=== PATIENT | female | born 1955 | race Caucasian/White ===

== ENCOUNTER 2018-07-12 15:55 | Emergency (ER) | payer OTHER ==
[~2018-07-12] VITALS: Ht 165.1 cm; Wt 187.8 kg
[~2018-07-12 15:55] MED LIST: AUGMENTIN 875-1 EACH PO; CLARITIN10 MG PO; FIORICET 50-321 EACH PO; FLOVENT HFA 1110 MCG IH; GLUCOPHAGE500 MG PO; HYDROCHLOROTHIA25 M1 PO; HYZAAR 100-251 EACH PO; MEDROL4 MG PO; NASONEX17 GM NS; PROAIR HFA8.5 GM IH; SINUS WASH NET1 EACH NS; SYMBICORT160 MCG/4. INH; ZPAK PO
[2018-07-12] MEDS ORDERED: LASIX 40 MG TAB40 M2 PO (16:08)
[2018-07-12] MEDS ORDERED: LISINOPRIL20 MG PO (16:09)
[2018-07-12] MEDS ORDERED: METFORMIN HCL500 MG PO (16:09)
[2018-07-12 20:18] VITALS: BP 152/44
== END 2018-07-12 20:18 | disposition home or self-care (01) ==
LOC: ER 15:55
DX: S81.811A Laceration without foreign body, right lower leg, initial encounter (principal); J45.909 Unspecified asthma, uncomplicated; F41.9 Anxiety disorder, unspecified; F32.9 Major depressive disorder, single episode, unspecified; I10 Essential (primary) hypertension; E11.9 Type 2 diabetes mellitus without complications; Z88.1 Allergy status to other antibiotic agents; Z88.2 Allergy status to sulfonamides; Z88.5 Allergy status to narcotic agent; W26.8XXA Contact with other sharp object(s), not elsewhere classified, initial encounter; Y93.89 Activity, other specified; Y92.89 Other specified places as the place of occurrence of the external cause; Y99.8 Other external cause status

== ENCOUNTER 2019-03-22 19:03 | Emergency (ER) | payer OTHER ==
[~2019-03-22] VITALS: Ht 165.1 cm; Wt 181.4 kg
[~2019-03-22 19:03] MED LIST changes: +LASIX 40 MG TAB40 M2 PO; +LISINOPRIL20 MG PO; +METFORMIN HCL500 MG PO
[2019-03-22 19:55] VITALS: BP 120/67
[2019-03-22] MEDS ORDERED: MUCINEX DM ER1 EACH PO (21:00)
[2019-03-22] MEDS ORDERED: PREDNISONE 20 M20 MG PO (21:00)
--- NOTE | 2019-03-23 08:19 | EKG ---
[address] [address] [place] [address] ELECTROCARDIOGRAM REPORT Name: IBAN MICHAELS Room #: [facility]#: [id number] ������������������ Admission: 03/22/19 ������������������ Attend Phys: Discharge: 03/22/19 ������������������ Date of : 57 Report #: [id number] ����������������������������������������������������������������� [id number] THIS REPORT FOR: //name// [facility] ED Test Date: 2019-03-22 Test Time: 20:49:50 Pat Name: IBAN MICHAELS Department: Room: Gender: F Neuropsychology Director: ROBERT : 1955 Requested By: Enrrique Camejo Order Number: [id number] MD: Trell Valenzuela Measurements Intervals [place] Rate: 97 P: 50 CT: 207 QRS: -34 QRSD: 92 T: 37 QT: 352 QTc: 447 Interpretive Statements Sinus rhythm Left axis deviation Low voltage, precordial leads Abnormal R-wave progression, late transition No previous ECG available for comparison Electronically Signed On 03-23-2019 8:19:26 CDT by Trell Valenzuela [email or web address] ��������������������������������������������� <ELECTRONICALLY SIGNED> ���������������������������������������� By: Trell Valenzuela MD, [facility] ��������������������������������������������� 03/23/1919 48 48 Trell Valenzuela MD, [facility] /EPI
== END 2019-03-22 22:45 ==
LOC: ER 19:03
DX: J45.901 Unspecified asthma with (acute) exacerbation (principal); J06.9 Acute upper respiratory infection, unspecified; I10 Essential (primary) hypertension; E11.9 Type 2 diabetes mellitus without complications; F41.9 Anxiety disorder, unspecified; F32.9 Major depressive disorder, single episode, unspecified; E66.01 Morbid (severe) obesity due to excess calories; Z88.6 Allergy status to analgesic agent; Z88.1 Allergy status to other antibiotic agents; Z88.2 Allergy status to sulfonamides; Z68.44 Body mass index [BMI] 60.0-69.9, adult